=== PATIENT | male | born 2000 | race Caucasian/White ===

== ENCOUNTER 2021-10-09 12:54 | Inpatient (IN) | payer MEDICAID, SELFPAY ==
[2021-10-09 13:03] VITALS: BMI 23.1
[2021-10-09 13:04] VITALS: BP 117/80; PULSE 69; RESP 18; TEMP 36.9; O2SAT 97
[2021-10-09] MEDS: LORazepam 2 mg/mL INJ 1 mL IM (13:22)
[2021-10-09] MEDS: haloperidol inj 5 mg/mL INJ 1 mL IM (13:22)
[2021-10-09] MEDS: diphenhydrAMINE 50 mg/mL SDV 1mL IM (13:22)
--- NOTE | 2021-10-09 13:23 | PC.NURSE ---
Addendum entered by Celine Benavides LPN 10/09/21 15:47: prn meds effective no further c/o anxiety/agitation/aggression. pt asleep in bed in room, resp even et unlabored Original Note: PRN HALDOL/ATIVAN/BENADRYL HALDOL 5 MG GIVEN IM WITH ATIVAN 2 MG IM IN LEFT DELTOID PER PT C/O INCREASED ANXIETY/AGITATION. BENADRYL 50 MG GIVEN IM IN RIGHT DELTOID PER PT C/O SEVERE AGGRESSION/AGITATION. PT NEW ADMIT, REFUSING TO CHANGE INTO NPU SCRUBS. COMMERCIAL ROOFING ESTIMATOR AND NPU DIRECTOR IN ROOM TO EDUCATE PATIENT ON UNIT RULES, EXPLAINED THE NEED TO CHANGE CLOTHES & PERFORM SKIN ASSESSMENT FOR SAFETY OF PATIENT. PT AGREEABLE TO INJECTIONS, TOOK MEDS WITHOUT INCIDENT. WILL CONT TO MONITOR FOR DESIRED MED EFFECTIVENESS.
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
[2021-10-09 14:00] VITALS: BP 117/80; PULSE 69; RESP 18; TEMP 36.9; O2SAT 97
[2021-10-09 20:05] VITALS: BP 105/71; PULSE 65; RESP 16; TEMP 36.7; O2SAT 97
[2021-10-10 06:00] VITALS: BP 91/53; PULSE 54; RESP 18; TEMP 36.4; O2SAT 94
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
[2021-10-10] MEDS: haloperidol 5 mg Tablet 10 MG PO ×2 (07:35→21:08)
[2021-10-10] MEDS: buPROPion XL (24 HR) 300 mg Tablet PO (07:35)
[2021-10-10] MEDS: benztropine 1 mg Tablet PO ×2 (07:36→21:08)
[2021-10-10] MEDS: divalproex DR 500 mg Tablet PO ×2 (07:36→21:08)
[2021-10-10] MEDS: OLANZapine 5 mg ODT PO ×2 (09:13→13:44)
[2021-10-10 14:00] VITALS: BP 120/66; PULSE 72; RESP 18; TEMP 36.6; O2SAT 98
[2021-10-10 20:33] VITALS: BP 108/71; PULSE 58; RESP 16; TEMP 36.4; O2SAT 98
[2021-10-10] MEDS: trazodone 100 mg Tablet PO (21:08)
[2021-10-10] MEDS: docusate sodium 100 mg Capsule PO (21:08)
[2021-10-11 06:00] VITALS: BP 96/55; PULSE 53; RESP 18; TEMP 36.8; O2SAT 98
[2021-10-11] MEDS: benztropine 1 mg Tablet PO ×2 (08:13→20:26)
[2021-10-11] MEDS: divalproex DR 500 mg Tablet PO ×2 (08:13→20:26)
[2021-10-11] MEDS: buPROPion XL (24 HR) 300 mg Tablet PO (08:13)
[2021-10-11] MEDS: haloperidol 5 mg Tablet 10 MG PO ×2 (08:13→20:25)
[2021-10-11] MEDS: hyDROXYzine 25 mg Capsule 50 MG PO ×2 (08:13→20:28)
[2021-10-11] MEDS: OLANZapine 5 mg ODT PO (12:25)
--- NOTE | 2021-10-11 13:45 | PC.NURSE ---
0813 Administered vistaril 50mg for pt experiencing anxiety.
--- NOTE | 2021-10-11 13:47 | PC.NURSE ---
122Rigoberto Administered 5mg Zyprexa Zydis for the pt experiencing high anxiety.
[2021-10-11 14:00] VITALS: BP 116/76; PULSE 69; RESP 18; TEMP 36.8; O2SAT 98
--- NOTE | 2021-10-11 15:51 | W.PM.NPUPNS ---
Subjective NPU Subjective: The patient is in today reporting that he has struggled with addiction in the past and that has had significant impact on these hospitalizations that he is having. He was inquisitive about what the standard would be for discharge. We discussed the desire for him to just have this to be another hospitalization for us to have him have some positive plans and foundation as he leaves. He denies any problems with his current medications. Mental Status Exam MSE Comments: This is a a well-nourished, well-developed white male in hospital scrubs with limited grooming and eye contact. No abnormal movements except for psychomotor retardation Cooperative with exam in mild distress. Speech was slightly decreased rate and volume. Mood described as okay, affect slightly subdued. Thought process organized, thought content: patient denies suicidal or homicidal ideation, there were no delusions reported or noted, he denied any auditory or visual hallucinations. Attention and concentration were intact and memory appeared reliable but none were formally tested. He?s alert and oriented times three. Insight and judgment appeared limited and impulse control appeared limited Vitals/I&O/Wt Last Vital Signs Temp 98.2 F 10/11/21 14:00 Pulse 69 10/11/21 14:00 Resp 18 10/11/21 14:00 BP 116/76 10/11/21 14:00 Pulse Ox 98 10/11/21 14:00 A&P Assessment and plan (1) Schizophrenia: Status: Acute Plan This is a 21-year-old male with schizophrenia who was recently admitted to a different hospital and released and is noncompliant with his medications. Plan: 1.? We will restart medications which she refilled in August.? Haldol 10 mg twice a day, Cogentin 1 mg twice a day, trazodone 100 mg at bedtime, Depakote 500 mg twice a day and Wellbutrin 300 mg every morning. 2.? Continue every 15 minute checks for safety. 3.? Encourage individual, group and milieu therapies. 4.? Encourage sober living treatment after discharge at the highest level of care to which he is willing to commit. 5.? We will monitor for safety for himself in the community prior to discharge. Involuntary Hold Information 96 Hour Hold: 96 Hour Involuntary Admission: No Attestations NPU Medical Necessity Statement*: Inpatient hospitalization is medically necessary and the clinically appropriate intervention at this time.? We will initiate medications and make changes as indicated.? Likely length of stay 3-5 days Coding Level of Care Code Acute Windows Server Architect for Chg Fwd Diagnoses Schizophrenia F20.9
[2021-10-11] MEDS: docusate sodium 100 mg Capsule PO (20:26)
[2021-10-11] MEDS: trazodone 100 mg Tablet PO (20:26)
[2021-10-11 21:20] VITALS: BP 122/76; PULSE 72; RESP 17; TEMP 36.7; O2SAT 97
--- NOTE | 2021-10-11 21:45 | PC.NURSE ---
PT REQUESTED SOMETHING TO HELP HIM HAVE A BM. COLACE WAS ORDERED AND GIVEN. PT ALSO COMPLAINED OF ANXIETY, VISTERIL WAS GIVEN.
[2021-10-12 06:00] VITALS: BP 120/69; PULSE 62; RESP 18; TEMP 36.8; O2SAT 98
[2021-10-12] MEDS: buPROPion XL (24 HR) 300 mg Tablet PO (08:31)
[2021-10-12] MEDS: haloperidol 5 mg Tablet 10 MG PO ×2 (08:31→20:49)
[2021-10-12] MEDS: benztropine 1 mg Tablet PO ×2 (08:31→20:49)
[2021-10-12] MEDS: divalproex DR 500 mg Tablet PO ×2 (08:31→20:49)
[2021-10-12] MEDS: OLANZapine 5 mg ODT PO ×2 (12:17→20:49)
[2021-10-12] MEDS: nicotine 2 mg Gum BUCCAL (13:55)
[2021-10-12 14:00] VITALS: BP 111/81; PULSE 87; RESP 16; TEMP 36.6; O2SAT 99
--- NOTE | 2021-10-12 16:05 | P.NPUPN_ITS ---
Subjective NPU Subjective: Patient presents today with less irritability. He is willing to doubt this business writer for the first time without the feeling of intentional was able to identify some of the factors that led to him having repeat inpatient hospitalizations as well as the circumstances behind the recent overdose. He spoke very clearly about understanding the need for him to be a better state of his medications and be adherent to those medications and that is better when he does this. We discussed continuing to monitor him and making sure that collateral resources were obtained and evaluating his safety for discharge and he was okay with that. Mental Status Exam MSE Comments: This is a a well-nourished, well-developed white male in hospital scrubs with limited grooming and eye contact. No abnormal movements ex cept for mild psychomotor retardation Cooperative with exam in mild distress. Speech was slightly decreased rate and volume. Mood described as getting better, affect congruent. Thought process organized, thought content: patient denies suicidal or homicidal ideation, there were no delusions reported or noted, he denied any auditory or visual hallucinations. Attention and concentration were intact and memory appeared reliable but none were formally tested. He?s alert and oriented times three. Insight and judgment appeared limited but improving and impulse control appeared limited Vitals/I&O/Wt Last Vital Signs Temp 97.9 F 10/12/21 14:00 Pulse 87 10/12/21 14:00 Resp 16 10/12/21 14:00 BP 111/81 10/12/21 14:00 Pulse Ox 99 10/12/21 14:00 A&P Assessment and plan (1) Schizophrenia: Status: Acute Plan This is a 21-year-old male with schizophrenia who was recently admitted to a different hospital and released and is noncompliant with his medications. Plan: 1.? We will restart medications which she refilled in August.? Haldol 10 mg twice a day, Cogentin 1 mg twice a day, trazodone 100 mg at bedtime, Depakote 500 mg twice a day and Wellbutrin 300 mg every morning. 2.? Continue every 15 minute checks for safety. 3.? Encourage individual, group and milieu therapies. 4.? Encourage sober living treatment after discharge at the highest level of care to which he is willing to commit. 5.? We will monitor for safety for himself in the community prior to discharge. Involuntary Hold Information 96 Hour Hold: 96 Hour Involuntary Admission: No Attestations NPU Medical Necessity Statement*: Inpatient hospitalization is medically necessary and the clinically appropriate intervention at this time.? We will initiate medications and make changes as indicated.?? Likely length of stay 2-4 days Coding Level of Care Code Acute Trial Management Associate for Chg Fwd Diagnoses Schizophrenia F20.9
[2021-10-12] MEDS: docusate sodium 100 mg Capsule PO (20:49)
[2021-10-12] MEDS: trazodone 100 mg Tablet PO (20:49)
[2021-10-12 20:57] VITALS: BP 117/80; PULSE 61; RESP 16; TEMP 36.7; O2SAT 98
--- NOTE | 2021-10-12 20:59 | PC.NURSE ---
PRN PATIENT REQUESTED DOCUSATE AND SOMETHING FOR ANXIETY. ZYDIS GIVEN. PATIENT NOW RESTING IN BED
[2021-10-13 06:00] VITALS: BP 99/65; PULSE 70; RESP 16; TEMP 36.7; O2SAT 98
[2021-10-13] MEDS: haloperidol 5 mg Tablet 10 MG PO ×2 (08:33→20:29)
[2021-10-13] MEDS: docusate sodium 100 mg Capsule PO (08:33)
[2021-10-13] MEDS: buPROPion XL (24 HR) 300 mg Tablet PO (08:33)
[2021-10-13] MEDS: nicotine 2 mg Gum BUCCAL ×3 (08:33→16:53)
[2021-10-13] MEDS: divalproex DR 500 mg Tablet PO ×2 (08:33→20:29)
[2021-10-13] MEDS: OLANZapine 5 mg ODT PO (10:32)
[2021-10-13] MEDS: benztropine 1 mg Tablet PO ×2 (10:32→20:29)
[2021-10-13] MEDS: magnesium hydroxide 30 mL UDC PO (10:36)
[2021-10-13 14:00] VITALS: BP 120/75; PULSE 60; RESP 16; TEMP 36.8; O2SAT 98
--- NOTE | 2021-10-13 17:51 | W.PM.NPUPNS ---
Subjective NPU Subjective: Patient presents today reporting that he is constipated but otherwise unchanged. He reports a commitment to figuring out a safe place to go home where he can begin his mental health recovery and try to change the pattern that caused difficulty in his existence over the past several years. He did advise the need for adherence to the medication, stable living environment and appropriate follow-up as things he willing to do that are necessary for his ongoing wellness. Mental Status Exam MSE Comments: This is a a well-nourished, well-developed white male in hospital scrubs with limited grooming and eye contact. No abnormal movements except for mild psychomotor retardation Cooperative with exam in mild distress. Speech was slightly decreased rate and volume. Mood described as a little nauseous from constipation, affect congruent. Thought process organized, thought content: patient denies suicidal or homicidal ideation, there were no delusions reported or noted, he denied any auditory or visual hallucinations. Attention and concentration were intact and memory appeared reliable but none were formally tested. He?s alert and oriented times three. Insight and judgment appeared limited but improving and impulse control appeared limited Vitals/I&O/Wt Last Vital Signs Temp 98.2 F 10/13/21 14:00 Pulse 75 10/13/21 20:00 Resp 16 10/13/21 20:00 BP 125/83 10/13/21 20:00 Pulse Ox 98 10/13/21 20:00 A&P Assessment and plan (1) Schizophrenia: Status: Acute Plan This is a 21-year-old male with schizophrenia who was recently admitted to a different hospital and released and is noncompliant with his medications. Plan: 1.? We will restart medications which she refilled in August.? Haldol 10 mg twice a day, Cogentin 1 mg twice a day, trazodone 100 mg at bedtime, Depakote 500 mg twice a day and Wellbutrin 300 mg every morning. 2.? Continue every 15 minute checks for safety. 3.? Encourage individual, group and milieu therapies. 4.? Encourage sober living treatment after discharge at the highest level of care to which he is willing to commit. 5.? We will monitor for safety for himself in the community prior to discharge. Involuntary Hold Information 96 Hour Hold: 96 Hour Involuntary Admission: No Attestations NPU Medical Necessity Statement*: Inpatient hospitalization is medically necessary and the clinically appropriate intervention at this time.? We will initiate medications and make changes as indicated.?? Likely length of stay 2-4 days Coding Level of Care Code Acute Clinical Cytogeneticist Scientist for Chg Fwd Diagnoses Schizophrenia F20.9
[2021-10-13 20:00] VITALS: BP 125/83; PULSE 75; RESP 16; O2SAT 98
[2021-10-13] MEDS: trazodone 100 mg Tablet PO (20:29)
[2021-10-14 06:00] VITALS: BP 80/52; PULSE 69; RESP 16; TEMP 36.8; O2SAT 98
--- NOTE | 2021-10-14 09:13 | PC.NURSE ---
PT CONTINUES TO ISOLATE IN ROOM. DENIES PAIN DENIES SI/HI AND AH. DOES ENDORSE SEEING TRACERS. PT STATES HE USUALLY SEES SHADOWS BUT FEELS LIKE I'M BETTER SINCE I ONLY SEE THE TRACERS NOW. PT REPORTS HE IS TIRED AND WENT BACK TO BED TO SLEEP.
[2021-10-14] MEDS: benztropine 1 mg Tablet PO ×2 (10:12→20:07)
[2021-10-14] MEDS: haloperidol 5 mg Tablet 10 MG PO ×2 (10:12→20:07)
[2021-10-14] MEDS: buPROPion XL (24 HR) 300 mg Tablet PO (10:13)
[2021-10-14] MEDS: divalproex DR 500 mg Tablet PO ×2 (10:13→20:07)
[2021-10-14] MEDS: nicotine 21 mg Patch 1 PATCH TRANSDERMA (10:13)
--- NOTE | 2021-10-14 12:20 | P.NPUPN_ITS ---
Subjective NPU Subjective: Patient presents today feeling a little better than yesterday from standpoint of the constipation but now being more forward thinking about what will happen after discharge. He reports being open to what ever options the treatment team presents on Saturday as he has limited resources and supports in the community. Mental Status Exam MSE Comments: This is a a well-nourished, well-developed white male in hospital scrubs with limited grooming and eye contact. No abnormal movements except for mild psychomotor retardation Cooperative with exam in mild distress. Speech was slightly decreased rate and volume. Mood described as a little better than yesterday, affect congruent. Thought process organized, thought content: patient denies suicidal or homicidal ideation, there were no delusions reported or noted, he denied any auditory or visual hallucinations. Attention and concentration were intact and memory appeared reliable but none were formally tested. He?s alert and oriented times three. Insight and judgment appeared limited but improving and impulse control appeared limited Vitals/I&O/Wt Last Vital Signs Temp 98.2 F 10/14/21 06:00 Pulse 69 10/14/21 06:00 Resp 16 10/14/21 06:00 BP 80/52 10/14/21 06:00 Pulse Ox 98 10/14/21 06:00 A&P Assessment and plan (1) Schizophrenia: Status: Acute Plan This is a 21-year-old male with schizophrenia who was recently admitted to a different hospital and released and is noncompliant with his medications. Plan: 1.? We restarted medications which he refilled in August.? Haldol 10 mg twice a day, Cogentin 1 mg twice a day, trazodone 100 mg at bedtime, Depakote 500 mg twice a day and Wellbutrin 300 mg every morning. 2.? Continue every 15 minute checks for safety. 3.? Encourage individual, group and milieu therapies. 4.? Encourage sober living treatment after discharge at the highest level of care to which he is willing to commit. 5.? We will work with treatment team on discharge options on Saturday. Involuntary Hold Information 96 Hour Hold: 96 Hour Involuntary Admission: No Attestations NPU Medical Necessity Statement*: Inpatient hospitalization is medically necessary and the clinically appropriate intervention at this time.? We will initiate medications and make changes as indicated.?? Likely length of stay 2-4 days Coding Level of Care Code Acute Merchandise Support Associate for g Fwd Diagnoses Schizophrenia F20.9
[2021-10-14 13:43] VITALS: BP 110/68; PULSE 72; RESP 17; TEMP 36.6; O2SAT 97
[2021-10-14] MEDS: hyDROXYzine 25 mg Capsule 50 MG PO (17:17)
[2021-10-14 19:45] VITALS: BP 117/77; PULSE 75; RESP 18; TEMP 36.4; O2SAT 96
[2021-10-14] MEDS: trazodone 100 mg Tablet PO (20:07)
[2021-10-15 06:00] VITALS: BP 96/59; PULSE 65; RESP 16; TEMP 36.6; O2SAT 97
[2021-10-15] MEDS: haloperidol 5 mg Tablet 10 MG PO ×2 (08:56→19:57)
[2021-10-15] MEDS: benztropine 1 mg Tablet PO ×2 (08:56→19:57)
[2021-10-15] MEDS: divalproex DR 500 mg Tablet PO ×2 (08:56→19:57)
[2021-10-15] MEDS: buPROPion XL (24 HR) 300 mg Tablet PO (08:56)
--- NOTE | 2021-10-15 12:13 | W.PM.NPUPNS ---
Subjective NPU Subjective: Today presents today for fairly tired during interview as he was awoken from sleep. He denies any new or pressing issues and endorsed desire to meet with the treatment team on Saturday and hopefully find a place for him to begin his treatment on an outpatient basis. Otherwise he is taking his medication and denied any current problems. Mental Status Exam MSE Comments: This is a a well-nourished, well-developed white male in hospital scrubs with limited grooming and eye contact. No abnormal movements except for mild psychomotor retardation Cooperative with exam in mild distress. Speech was slightly decreased rate and volume. Mood described as okay but tired, affect congruent. Thought process organized, thought content: patient denies suicidal or homicidal ideation, there were no delusions reported or noted, he denied any auditory or visual hallucinations. Attention and concentration were intact and memory appeared reliable but none were formally tested. He?s alert and oriented times three. Insight and judgment appeared limited but improving and impulse control appeared limited Vitals/I&O/Wt Last Vital Signs Temp 97.8 F 10/15/21 06:00 Pulse 65 10/15/21 06:00 Resp 16 10/15/21 06:00 BP 96/59 10/15/21 06:00 Pulse Ox 97 10/15/21 06:00 Weight last 48 hrs Weight 87.997 kg A&P Assessment and plan (1) Schizophrenia: Status: Acute Plan This is a 21-year-old male with schizophrenia who was recently admitted to a different hospital and released and is noncompliant with his medications. Plan: 1.? We restarted medications which he refilled in August.? Haldol 10 mg twice a day, Cogentin 1 mg twice a day, trazodone 100 mg at bedtime, Depakote 500 mg twice a day and Wellbutrin 300 mg every morning. 2.? Continue every 15 minute checks for safety. 3.? Encourage individual, group and milieu therapies. 4.? Encourage sober living treatment after discharge at the highest level of care to which he is willing to commit. 5.? We will work with treatment team on discharge options on Saturday. Involuntary Hold Information 96 Hour Hold: 96 Hour Involuntary Admission: No Attestations NPU Medical Necessity Statement*: Inpatient hospitalization is medically necessary and the clinically appropriate intervention at this time.? We will initiate medications and make changes as indicated.?? Likely length of stay 1-3 days Coding Level of Care Code Acute Production Coordinator for Chg Fwd Diagnoses Schizophrenia F20.9
[2021-10-15 14:00] VITALS: BP 96/59; PULSE 65; RESP 16; TEMP 36.6; O2SAT 97
[2021-10-15] MEDS: OLANZapine 5 mg ODT PO (14:50)
[2021-10-15] MEDS: nicotine 2 mg Gum BUCCAL (18:01)
[2021-10-15 19:43] VITALS: BP 83/50; PULSE 80; RESP 19; TEMP 36.7; O2SAT 98
[2021-10-15] MEDS: trazodone 100 mg Tablet PO (19:57)
[2021-10-16 06:00] VITALS: BP 93/56; PULSE 70; RESP 17; TEMP 36.4; O2SAT 98
[2021-10-16] MEDS: benztropine 1 mg Tablet PO ×2 (07:52→20:11)
[2021-10-16] MEDS: buPROPion XL (24 HR) 300 mg Tablet PO (07:52)
[2021-10-16] MEDS: divalproex DR 500 mg Tablet PO ×2 (07:52→20:11)
[2021-10-16] MEDS: haloperidol 5 mg Tablet 10 MG PO ×2 (07:53→20:10)
[2021-10-16] MEDS: hyDROXYzine 25 mg Capsule 50 MG PO (12:23)
--- NOTE | 2021-10-16 12:23 | PC.NURSE ---
PRN VISTARIL 50 MG GIVEN PO PER PT C/O STATED ANXIETY. WILL CONT TO MONITOR
[2021-10-16 14:00] VITALS: BP 116/82; PULSE 90; RESP 16; TEMP 36.7; O2SAT 98
[2021-10-16] MEDS: OLANZapine 5 mg ODT PO (14:35)
--- NOTE | 2021-10-16 17:16 | W.PM.NPUPNS ---
Subjective NPU Subjective: Patient resents today reporting that he is doing okay. He denies any major changes and reports that his medications are working fine he feels. He is working with the treatment team for appropriate options for discharge and is reporting eating and sleeping much better. Mental Status Exam MSE Comments: This is a a well-nourished, well-developed white male in hospital scrubs with limited grooming and eye contact. No abnormal movements except for mild psychomotor retardation Cooperative with exam in mild distress. Speech was slightly decreased rate and volume. Mood described as getting better, affect congruent. Thought process organized, thought content: patient denies suicidal or homicidal ideation, there were no delusions reported or noted, he denied any auditory or visual hallucinations. Attention and concentration were intact and memory appeared reliable but none were formally tested. He?s alert and oriented times three. Insight and judgment appeared limited but improving and impulse control appeared limited Vitals/I&O/Wt Last Vital Signs Temp 98.1 F 10/16/21 14:00 Pulse 90 10/16/21 14:00 Resp 16 10/16/21 14:00 BP 116/82 10/16/21 14:00 Pulse Ox 98 10/16/21 14:00 Weight last 48 hrs Weight 87.997 kg A&P Assessment and plan (1) Schizophrenia: Status: Acute Plan This is a 21-year-old male with schizophrenia who was recently admitted to a different hospital and released and is noncompliant with his medications. Plan: 1.? We restarted medications which he refilled in August.? Haldol 10 mg twice a day, Cogentin 1 mg twice a day, trazodone 100 mg at bedtime, Depakote 500 mg twice a day and Wellbutrin 300 mg every morning. 2.? Continue every 15 minute checks for safety. 3.? Encourage individual, group and milieu therapies. 4.? Encourage sober living treatment after discharge at the highest level of care to which he is willing to commit. 5.? Tentative plan for discharge in the morning. Involuntary Hold Information 96 Hour Hold: 96 Hour Involuntary Admission: No Attestations NPU Medical Necessity Statement*: Inpatient hospitalization is medically necessary and the clinically appropriate intervention at this time.? We will initiate medications and make changes as indicated.?? Likely length of stay 1-2 days Coding Level of Care Code Acute Mobile Sales Assistant for [facility] Fwd Diagnoses Schizophrenia F20.9
[2021-10-16] MEDS: trazodone 100 mg Tablet PO (20:11)
[2021-10-16 21:01] VITALS: BP 99/62; PULSE 70; RESP 17; TEMP 36.9; O2SAT 98
[2021-10-17 06:00] VITALS: BP 109/72; PULSE 65; RESP 20; TEMP 36.8; O2SAT 96
[2021-10-17] MEDS: hyDROXYzine 25 mg Capsule 50 MG PO (06:49)
[2021-10-17] MEDS: divalproex DR 500 mg Tablet PO (08:16)
[2021-10-17] MEDS: haloperidol 5 mg Tablet 10 MG PO (08:16)
[2021-10-17] MEDS: buPROPion XL (24 HR) 300 mg Tablet PO (08:16)
[2021-10-17] MEDS: benztropine 1 mg Tablet PO (08:17)
[2021-10-17 08:41] LABS: Valproic Acid Level 64.3 ug/mL (50-100)
[2021-10-17 11:04] VITALS: BP 109/72; PULSE 65; RESP 20; TEMP 36.8; O2SAT 96
[2021-10-17] MEDS: OLANZapine 5 mg ODT PO (11:11)
--- NOTE | 2021-10-17 11:15 | PC.NURSE ---
PRN ZYPREXA ZYPREXA 5 MG GIVEN PO PER PT C/O FUTHER ANXIETY
--- NOTE | 2021-10-17 11:42 | P.NPUDS_ITS ---
Diagnoses at Discharge Discharge Diagnosis (1) Schizophrenia: Status: Acute Reason for Visit Reason for Visit: SI Brief History: History of Present Illness Peña Luna is a 21 year old male admitted through an outside emergency department with the following report: The patient arrived by ambulance.? He is a 21-year-old gentleman who does not provide much history.? He admits that he has not been taking his medications.? He has been hearing voices.? He also states he has been using methamphetamine and marijuana.? He denies any thoughts of harming herself or harming others.? He states that he has a slight cough, some nausea and vomiting but no other symptoms.? He was seen by me in this emergency department 3 months ago when he was thinking about overdosing.? He was transferred to the [facility] for inpatient psychiatric treatment at that time. He is unable to give much information.? He was crying throughout the interview.? He said that he was living with his aunt and uncle in [facility].? He said that they were constantly doing drugs and it was getting on his skin.? He says that his medications were not working because the drugs from his aunt and uncle were constantly getting on his skin. He says that he went there to visit that 1 and 3-year-old children hoping that they were doing well.? He said they were not going well because he has an uncle were constantly on drugs.? He said people were breaking things and putting a lot of trash in the yard and they were blaming it on him.? He said that the medications that they gave him in the hospital did not help because of his aunt and uncle.? He was very agitated when he arrived yesterday and required a B-52. Hospital Course Hospital Course He slowly acclimated to the individual, group and milieu. After a couple days of grogginess and limited interaction he became much less isolative much more co mmitted to finding some option that would be sustainable for him to be well. Not having a place to go was fairly anxiety provoking for him. He was able work with the social work team to find safe and positive sober living options. He had marked improvement during the hospitalization and was able to contract for safety outside the hospital prior to discharge. During the hospitalization, patient had routine laboratory studies which were within normal limits except for few outliers. Additionally there was a general medical evaluation which was also within normal limits and revealed no new acute processes. Discharge Summary: At the time of discharge, he denied psychosis or lethality. Mood and anxiety were well managed. Patient endorsed a plan to avoid all drugs of abuse and follow-up with the aftercare recommendations of the treatment team. Patient was evaluated and deemed to be absent credible lethality, and had achieved the maximum benefit from an inpatient hospitalization, so was discharged. Involuntary Hold Information 96 Hour Hold: 96 Hour Involuntary Admission: No Mental Status Exam MSE Comments: This is a a well-nourished, well-developed white male in hospital scrubs with adequate grooming and eye contact. No abnormal movements. Cooperative with exam in no acute distress. Speech was slightly decreased rate and volume. Mood described as better, affect congruent. Thought process organized, thought content: patient denies suicidal or homicidal ideation, there were no delusions reported or noted, he denied any auditory or visual hallucinations. Attention and concentration were intact and memory appeared reliable but none were formally tested. He?s alert and oriented times three. Insight and judgment appeared limited but improving and impulse control appeared limited, but improving. Discharge Data Studies Completed and Pending: Laboratory Results Valproic Acid 64.3 ug/mL (50-10 0) 10/17/21 07:54 Vitals: Last Vital Signs Temp 98.2 F 10/17/21 11:04 Pulse 65 10/17/21 11:04 Resp 20 H 10/17/21 11:04 BP 109/72 10/17/21 11:04 Pulse Ox 96 10/17/21 11:04 Discharge Plan Discharge Patient Disposition: Home Condition: Stable Prescriptions: Continued divalproex 500 mg tablet,delayed release (DR/EC) 500 mg PO BID@0900,2099 30 Days Qty: 60 1RF trazodone 100 mg tablet 100 mg PO BEDTIME 30 Days Qty: 30 1RF haloperidol 10 mg tablet 10 mg PO BID@0900,2100 30 Days Qty: 60 1RF benztropine 1 mg tablet 1 mg PO BID@0900,2100 30 Days Qty: 60 1RF bupropion HCl 300 mg tablet extended release 24 hr 300 mg PO DAILY 30 Days Qty: 30 1RF Discharge Orders: Discharge Order (Routine); Ordered 10/17/21 Ordered By: Frankie Montana Referrals: [facility] [Other] - 10/17/21 4:00 pm [facility] [Outside] - 4-7 days (Walk in Saturday thru Saturday 8am to 4pm.) Discharge Diet: Regular Discharge Activity: Resume usual activity Patient Instructions: Schizophrenia (DC), Opioid Safety Discharge Attestations NPU Time Spent in Discharge Care*: less than 30 min Specific Discharge Activities: Specific discharge activities: educating patient, discussing with case management coordinator/social workers/dc planners, documenting/other paperwork and evaluating patient/reviewing data Coding Level of Care Code Acute Chg FW DC note Diagnoses Schizophrenia F20.9
[2021-10-17 11:59] VITALS: BP 109/72; PULSE 65; RESP 20; TEMP 36.8; O2SAT 96
== END 2021-10-17 12:50 | disposition home or self-care (01) | DRG 885 ==
PROVIDERS: Psychiatry & Neurology Psychiatry; Admitting Provider Psychiatry & Neurology Psychiatry; PCP Family Medicine; Visit Provider Psychiatry & Neurology Psychiatry
DX: F20.9 Schizophrenia, unspecified (principal); F15.10 Other stimulant abuse, uncomplicated; Z91.14 Patient's other noncompliance with medication regimen
CPT/HCPCS: 80164; 96372; 97165; J1200; J1630; J2060